=== PATIENT | female | born 1980 | race Hispanic/Latino ===

== ENCOUNTER 2020-03-21 12:03 | Outpatient (CLI) | payer BC ==
--- NOTE | 2020-03-21 13:07 | RAD ---
Radiograph right clavicle 2 views: HISTORY: Right clavicular pain FINDINGS: No evidence of fracture or periostitis. No evidence of osteolytic, osteoblastic, or permeative lesion . Mild DJD at AC joint. IMPRESSION: No definite pathology of the clavicle identified
== END 2020-03-21 12:04 | disposition home or self-care (01) ==
LOC: BICRAD 12:03
PROVIDERS: ATTEND Family Medicine
DX: M89.8X1 Other specified disorders of bone, shoulder (principal)